=== PATIENT | female | born 1950 | race African-American/Black ===

== ENCOUNTER 2019-12-15 08:24 | Day surgery (SDC) | payer MEDICARE, MEDICAID ==
[2019-12-15] VITALS (15 sets, daily range): BP systolic 144–183; BP diastolic 61–138
[~2019-12-15] VITALS: Ht 162.6 cm; Wt 80.5 kg
[~2019-12-15 08:24] MED LIST: BENA5TAB39 PO; CYAN50003 PO; ESOM40CA PO; FOLI0.4T2 PO; HYDR12.522 PO; IRON-11 PO; LOP25T PO; NITR0.4T SL; NORCO10T PO; VIT1CAPS48 PO
[2019-12-15] MEDS ORDERED: normal saline 1000ml 1,000 ML IV PRN (08:45)
[2019-12-15] MEDS ORDERED: TIZA4TAB11 PO (09:00)
[2019-12-15] MEDS ORDERED: POTA10TA36 PO (09:00)
[2019-12-15] MEDS ORDERED: PANT-47 PO (09:00)
[2019-12-15 09:29] LABS: BASOPHILS % (AUTO) 0.5 % (0-1); EOSINOPHILS # (AUTO) 0.5 X10'3 (0-0.9); EOSINOPHILS % (AUTO) 6.4 % (0-6); HEMATOCRIT 34.7 % (35.0-45.0); HEMOGLOBIN 11.2 g/dl (12.0-16.0); LYMPHOCYTES # (AUTO) 2.1 X10'3 (1.1-4.8); LYMPHOCYTES % (AUTO) 26.6 % (21-51); MEAN CORPUSCULAR HEMOGLOBIN 25.2 PG (27.0-31.0); MEAN CORPUSCULAR HGB CONC 32.4 g/dL (33.0-36.5); MEAN CORPUSCULAR VOLUME 77.8 FL (78-98); MEAN PLATELET VOLUME 7.7 FL (7.4-10.4); MONOCYTES # (AUTO) 0.4 X10'3 (0-0.9); MONOCYTES % (AUTO) 5.1 % (2-12); NEUTROPHILS # (AUTO) 4.9 X10'3 (1.8-7.7); NEUTROPHILS % (AUTO) 61.4 % (42-75); PLATELET COUNT 313 X10'3 (140-440); RED BLOOD COUNT 4.47 X10'6 (4.20-5.60); RED CELL DISTRIBUTION WIDTH 17.2 % (11.5-14.5)
[2019-12-15] MEDS ORDERED: midazolam 2 mg/2 ml injection ONE (11:20)
[2019-12-15] MEDS ORDERED: fentaNYL/PF 50MCG/1 ML 2ML syringe ONE (11:20)
== END 2019-12-15 16:37 | disposition home or self-care (01) ==
LOC: SSTAY O 08:24
PROVIDERS: ATTEND Radiology Vascular & Interventional Radiology
DX: R91.1 Solitary pulmonary nodule (principal); G89.4 Chronic pain syndrome; E21.3 Hyperparathyroidism, unspecified; I10 Essential (primary) hypertension; M19.90 Unspecified osteoarthritis, unspecified site; K21.9 Gastro-esophageal reflux disease without esophagitis; Z96.643 Presence of artificial hip joint, bilateral; Z90.721 Acquired absence of ovaries, unilateral; Z98.890 Other specified postprocedural states; F17.210 Nicotine dependence, cigarettes, uncomplicated; Z88.6 Allergy status to analgesic agent; Z88.2 Allergy status to sulfonamides; Z88.8 Allergy status to other drugs, medicaments and biological substances
CPT/HCPCS: 32405; 36415; 71045; 77012; 85025; J2250; J3010; 99152; 99153

== ENCOUNTER 2020-05-17 05:20 | Inpatient (IN) | payer MEDICARE, MEDICAID ==
[2020-05-10 11:45] LABS: CLARITY,URINE CLEAR (Clear); COLOR,URINE YELLOW (Yellow); GLUCOSE, URINE NEGATIVE (Neg); KETONES,URINE NEGATIVE (Neg); LEUKOCYTE ESTERASE ,URINE NEGATIVE (Neg); NITRITES, URINE NEGATIVE (Neg); OCCULT BLOOD,URINE NEGATIVE (Neg); PROTEIN,URINE NEGATIVE (Neg)
[2020-05-10 11:55] LABS: UA COLLECTION TYPE CLN CATCH MIDSTREAM
[2020-05-10 11:55] LABS: BASOPHILS % (AUTO) 0.7 % (0-1); EOSINOPHILS # (AUTO) 0.4 X10'3 (0-0.9); EOSINOPHILS % (AUTO) 6.2 % (0-6); LYMPHOCYTES # (AUTO) 2.2 X10'3 (1.1-4.8); LYMPHOCYTES % (AUTO) 34.1 % (21-51); MEAN CORPUSCULAR HEMOGLOBIN 25.3 PG (27.0-31.0); MEAN CORPUSCULAR HGB CONC 31.9 g/dL (33.0-36.5); MEAN CORPUSCULAR VOLUME 79.3 FL (78-98); MEAN PLATELET VOLUME 7.8 FL (7.4-10.4); MONOCYTES # (AUTO) 0.4 X10'3 (0-0.9); MONOCYTES % (AUTO) 6.4 % (2-12); NEUTROPHILS # (AUTO) 3.4 X10'3 (1.8-7.7); NEUTROPHILS % (AUTO) 52.6 % (42-75); PRE OP HEMATOCRIT 36.3 % (35.0-45.0); PRE OP HEMOGLOBIN 11.6 g/dL (12.0-16.0); PRE OP PLATELET COUNT 341 X10'3 (140-440); RED BLOOD COUNT 4.58 X10'6 (4.20-5.60); RED CELL DISTRIBUTION WIDTH 16.4 % (11.5-14.5)
[2020-05-10 11:59] LABS: PRE OP PROTIME 10.8 SECONDS (9.0-12.0)
[2020-05-10 12:46] LABS: ALBUMIN 4.1 G/DL (3.4-5.0); ALBUMIN/GLOBULIN RATIO 0.9 (1.1-1.5); ALKALINE PHOSPHATASE 93 IU/L (46-116); BLOOD UREA NITROGEN 14 MG/DL (7-18); BUN/CREATININE RATIO 13.7 (6.6-38.0); CALCIUM 11.1 MG/DL (8.5-10.1); CHLORIDE 102 MMOL/L (99-107); CREATININE 1.02 MG/DL (0.40-0.90); PRE OP ALT 22 U/L (30-65); PRE OP ANION GAP 10 (8-16); PRE OP AST 19 U/L (10-37); PRE OP BILIRUB, TOTAL 0.3 MG/DL (0.0-1.0); PRE OP GLUCOSE 90 MG/DL (70-104); PRE OP POTASSIUM 3.4 MMOL/L (3.4-5.1); PRE OP SODIUM 140 MMOL/L (135-145); TOTAL CARBON DIOXIDE 27.8 MMOL/L (24-32); TOTAL PROTEIN 8.8 G/DL (6.4-8.2); eGFR 65 ML/MIN
[2020-05-11 08:51] LABS: ABG HCO3 22.4 mmol/L (22.0-26.0); ABG OXYGEN SATURATION 95.8 % (94-97); ABG PCO2 (T) 33.3 mmHg (32.0-45.0); ABG PO2 (T) 80.1 mmHg (75.0-100.0); ALLEN'S TEST POSITIVE; FCOHb 0.3 % (0.0-3.9); FMetHb 0.1 % (0.0-1.5); FO2Hb 95.4 % (94-97); TOTAL HEMOGLOBIN 11.9 G/dl (12.0-16.0)
[2020-05-17] VITALS (18 sets, daily range): BP systolic 138–166; BP diastolic 50–90
[~2020-05-17] VITALS: Ht 162.6 cm; Wt 75.0 kg
[~2020-05-17 05:20] MED LIST changes: -ESOM40CA PO; -IRON-11 PO; +KEN0.1O TP; -NITR0.4T SL; +PANT-47 PO; +POTA10TA36 PO; +TIZA4TAB11 PO; +ringers solution, lacted 1,000 ML IV SCH
[2020-05-17] MEDS ORDERED: ceFAZolin 2gm in dextrose, iso 50 ML IV ONE (05:30)
[2020-05-17] MEDS ORDERED: famotidine 20mg tablet PO ONE (05:30)
[2020-05-17] MEDS ORDERED: gabapentin 400mg capsule PO ONE (05:30)
[2020-05-17] MEDS ORDERED: albuterol 2.5 MG/3 ML nebule NEB ONE (05:30)
[2020-05-17] MEDS ORDERED: DOCUMENT DATE & TIME OF BETA-BLOCKER PO ONE (05:30)
[2020-05-17] MEDS ORDERED: LIDOcaine 1% (10mg/ml) 2ml vial ONE (06:26)
[2020-05-17] MEDS: mupirocin 2% nasal ointment 1gm UD NS SCH ×3 (06:31→20:39)
[2020-05-17] MEDS ORDERED: ePHEDrine 50MG/ML INJ. ONE (07:14)
[2020-05-17] MEDS ORDERED: sevoflurane 250ml liquid IH ONE (07:14)
[2020-05-17] MEDS ORDERED: MIDAZolam 5mg/5ml vial ONE (07:17)
[2020-05-17] MEDS ORDERED: fentaNYL /PF 50mcg/ml 5ml ampule ONE (07:17)
[2020-05-17] MEDS ORDERED: BUPIVAcaine/PF 2.5 mg/ml (0.25%) 30ml vial ONE (08:16)
[2020-05-17] MEDS ORDERED: propofol inj 20 ML IV ONE (08:19)
[2020-05-17] MEDS ORDERED: rocuronium 10mg/ml inj IV ONE (08:19)
[2020-05-17] MEDS ORDERED: ringers solution, lacted 1,000 ML IV SCH (09:08)
[2020-05-17] MEDS ORDERED: ondansetron/PF 4mg/2ml inj IV PRN ×2 (09:10→12:05)
[2020-05-17] MEDS ORDERED: labetalol 20mg/4ml (5mg/ml) syringe IV PRN (09:10)
[2020-05-17] MEDS ORDERED: meperidine/PF 25mg/ml syringe IV PRN ×3 (09:10)
[2020-05-17] MEDS ORDERED: HYDROmorphone inj. 0.5 MG/0.5 ML DISP.SYRIN IV PRN ×3 (09:10→12:10)
[2020-05-17] MEDS ORDERED: albumin (Human) 5% 250ml 250 ML IV ONE (11:28)
[2020-05-17] MEDS ORDERED: dexamethasone sod phosphate 4mg/ml inj. ONE (11:28)
[2020-05-17] MEDS ORDERED: acetaminophen 1,000mg/100ml IV 100 ML IV ONE (11:29)
[2020-05-17] MEDS ORDERED: ondansetron/PF 4mg/2ml inj ONE (11:31)
--- NOTE | 2020-05-17 11:57 | NUR ---
LT RADIAL ART LINE REMOVED WITH CATHETER INTACT. PRESSURE HELD AND DRESSING APPLIED. NO BLEEDING NOTED.
--- NOTE | 2020-05-17 11:57 | NUR ---
Received from OR via , accompanied by Anesthesiologist DR SUNSHINE and report given by Anesthesiolgist. AWAKENS TO VOICE. VITALS STABLE. DRESSING DI. JESSICA PAIN. CHEST TUBE TO LOW SUCTION. BEY WITH CLEAR URINE.
[2020-05-17] MEDS ORDERED: triamcinolone acet 0.1% cream 15gm TP PRN (12:00)
[2020-05-17] MEDS ORDERED: tizanidine 4mg tablet PO PRN (12:00)
[2020-05-17] MEDS ORDERED: naloxone 0.4 mg/ml inj IV PRN (12:05)
[2020-05-17] MEDS ORDERED: metoclopramide 5 mg/ml inj IV PRN (12:05)
[2020-05-17] MEDS ORDERED: magnesium hydroxide 30ml (MOM) UD suspension PO PRN (12:05)
[2020-05-17] MEDS ORDERED: HYDROcodone/acetaminophen 10/325mg tab PO PRN (12:05)
[2020-05-17] MEDS ORDERED: albuterol 2.5 MG/3 ML nebule NEB PRN (12:05)
[2020-05-17] MEDS ORDERED: ipratropium 0.5 MG/2.5ML nebule IH PRN (12:20)
--- NOTE | 2020-05-17 12:56 | NUR ---
Patient in room PAS IN 900. I have received report from Lj,biology internship and had the opportunity to ask questions and assume patient care.
--- NOTE | 2020-05-17 13:07 | NUR ---
Report called to receiving nurse. Transferred via BED Belongings . Special Issues communicated to receiving nurse. AWAKE AND ORIENTED. VITALS STABLE. DRESSING DI. STATES PAIN IMPROVING. TO SANDEEP RM 316 AT THIS TIME.
--- NOTE | 2020-05-17 13:15 | NUR ---
received pt into room 316,pt groggy,but responsive,denies pain at this time,oriented to surroundings,VSS,dressing right upper lateral chest D and I,no air leak to chest tube,120 cc sero-sang drainage,will cont with post -op monitering
[2020-05-17] MEDS: ketorolac tromethamine 15mg/ml inj. IV SCH ×2 (14:14→20:39)
[2020-05-17] MEDS: albuterol 2.5 MG/3 ML nebule NEB SCH ×3 (15:00→23:36)
[2020-05-17 15:16] LABS: BASOPHILS % (AUTO) 0.2 % (0-1); EOSINOPHILS % (AUTO) 0.1 % (0-6); HEMATOCRIT 30.4 % (35.0-45.0); HEMOGLOBIN 9.7 g/dl (12.0-16.0); LYMPHOCYTES # (AUTO) 0.8 X10'3 (1.1-4.8); LYMPHOCYTES % (AUTO) 6.9 % (21-51); MEAN CORPUSCULAR HEMOGLOBIN 25.1 PG (27.0-31.0); MEAN CORPUSCULAR HGB CONC 31.9 g/dL (33.0-36.5); MEAN CORPUSCULAR VOLUME 78.7 FL (78-98); MEAN PLATELET VOLUME 7.5 FL (7.4-10.4); MONOCYTES # (AUTO) 0.5 X10'3 (0-0.9); MONOCYTES % (AUTO) 4.2 % (2-12); NEUTROPHILS # (AUTO) 9.8 X10'3 (1.8-7.7); NEUTROPHILS % (AUTO) 88.6 % (42-75); PLATELET COUNT 262 X10'3 (140-440); RED BLOOD COUNT 3.86 X10'6 (4.20-5.60); RED CELL DISTRIBUTION WIDTH 16.1 % (11.5-14.5)
[2020-05-17 15:26] LABS: ALBUMIN 3.7 G/DL (3.4-5.0); ANION GAP 13 (8-16); BLOOD UREA NITROGEN 11 MG/DL (7-18); BUN/CREATININE RATIO 13.9 (6.6-38.0); CALCIUM 9.6 MG/DL (8.5-10.1); CHLORIDE 101 MMOL/L (99-107); CREATININE 0.79 MG/DL (0.40-0.90); GLUCOSE 135 MG/DL (70-104); MAGNESIUM 1.3 MG/DL (1.5-2.4); SODIUM 137 MMOL/L (135-145); TOTAL CARBON DIOXIDE 22.9 MMOL/L (24-32); eGFR 87 ML/MIN
[2020-05-17 15:27] LABS: POTASSIUM 2.9 MMOL/L (3.5-5.1)
--- NOTE | 2020-05-17 15:30 | NUR ---
RECEIVED CRITICAL LAB VALUE K=2.9 emily MALIK contacted,orders taken for k and mg replacement
[2020-05-17] MEDS ORDERED: magnesium Cl slow-release 64mg tablet PO PRN (15:45)
[2020-05-17] MEDS ORDERED: potassium Cl 20 mEq SR tablet PO PRN ×2 (15:45)
[2020-05-17] MEDS: K and/or MAG REPLACEMENT MC SCH ×2 (15:45→23:00)
[2020-05-17] MEDS: ceFAZolin inj. 1,000 MG in dextrose 5%-water 50ml 50 ML IV SCH (16:32)
[2020-05-17] MEDS: potassium CL 10mEq/100ml bag 100 ML IV PRN ×5 (16:45→23:28)
--- NOTE | 2020-05-17 18:00 | NUR ---
Problems reprioritized. Patient report given, questions answered & plan of care reviewed with WANDA lee.
--- NOTE | 2020-05-17 18:10 | NUR ---
Patient in room MED 316. I have received report from Millie, and had the opportunity to ask questions and assume patient care.
[2020-05-17] MEDS: gabapentin 300mg capsule PO SCH (20:00)
[2020-05-17] MEDS: metoprolol tartrate 50mg tablet PO SCH (20:40)
[2020-05-17] MEDS: docusate sod 100mg capsule PO SCH (20:40)
[2020-05-17] MEDS: HYDROmorphone 1 mg/ml syringe IV PRN (22:34)
[2020-05-18] MEDS: potassium CL 10mEq/100ml bag 100 ML IV PRN ×3 (00:31→03:04)
[2020-05-18] MEDS: ceFAZolin inj. 1,000 MG in dextrose 5%-water 50ml 50 ML IV SCH (00:31)
[2020-05-18 01:07] LABS: BASOPHILS % (AUTO) 0.2 % (0-1); EOSINOPHILS % (AUTO) 0.2 % (0-6); HEMATOCRIT 27.3 % (35.0-45.0); LYMPHOCYTES # (AUTO) 1.4 X10'3 (1.1-4.8); LYMPHOCYTES % (AUTO) 12.8 % (21-51); MEAN CORPUSCULAR VOLUME 78.7 FL (78-98); MEAN PLATELET VOLUME 7.4 FL (7.4-10.4); MONOCYTES # (AUTO) 0.7 X10'3 (0-0.9); MONOCYTES % (AUTO) 6.7 % (2-12); NEUTROPHILS # (AUTO) 8.7 X10'3 (1.8-7.7); NEUTROPHILS % (AUTO) 80.1 % (42-75); PLATELET COUNT 246 X10'3 (140-440); RED BLOOD COUNT 3.47 X10'6 (4.20-5.60); RED CELL DISTRIBUTION WIDTH 15.9 % (11.5-14.5); WHITE BLOOD COUNT 10.8 X10'3 (4.5-11.0)
[2020-05-18 01:14] LABS: ALBUMIN 3.1 G/DL (3.4-5.0); ANION GAP 10 (8-16); BLOOD UREA NITROGEN 14 MG/DL (7-18); BUN/CREATININE RATIO 13.6 (6.6-38.0); CALCIUM 8.9 MG/DL (8.5-10.1); CHLORIDE 100 MMOL/L (99-107); CREATININE 1.03 MG/DL (0.40-0.90); GLUCOSE 106 MG/DL (70-104); MAGNESIUM 1.2 MG/DL (1.5-2.4); POTASSIUM 4.4 MMOL/L (3.5-5.1); SODIUM 134 MMOL/L (135-145); TOTAL CARBON DIOXIDE 24.5 MMOL/L (24-32); eGFR 64 ML/MIN
[2020-05-18] MEDS: magnesium 4gm in 100ml NS 100 ML IV PRN ×2 (01:28→09:25)
[2020-05-18] MEDS: ketorolac tromethamine 15mg/ml inj. IV SCH ×2 (01:30→08:29)
--- NOTE | 2020-05-18 01:31 | NUR ---
patient's am labs drawn, Mag level is 1.2. Starting him on IV Mag replacement per protocol. Patient is asymptomatic. Not at any distress. Normal Sinus Rhythm.
[2020-05-18 02:00] VITALS: BP 129/56
[2020-05-18] MEDS: HYDROmorphone 1 mg/ml syringe IV PRN ×4 (03:12→19:47)
[2020-05-18] MEDS: albuterol 2.5 MG/3 ML nebule NEB SCH ×6 (03:56→23:28)
[2020-05-18 06:30] VITALS: BP 123/47
[2020-05-18] MEDS ORDERED: non-formulary drug (Vit A & D3 In Cod Liver Oil (Cod Liver Oil Softgel) 1 EACH) PO SCH (08:00)
[2020-05-18] MEDS: K and/or MAG REPLACEMENT MC SCH ×2 (08:09→20:00)
[2020-05-18] MEDS: cyanocobalamin 500mcg tablet PO SCH (08:24)
[2020-05-18] MEDS: metoprolol tartrate 50mg tablet PO SCH ×2 (08:25→19:45)
[2020-05-18] MEDS: folic acid 1mg tablet PO SCH (08:25)
[2020-05-18] MEDS: lisinopril 5mg tablet PO SCH (08:26)
[2020-05-18] MEDS: pantoprazole 40mg Tablet.DR PO SCH (08:26)
[2020-05-18] MEDS: HYDROchlorothiazide 25mg tablet PO SCH (08:26)
[2020-05-18] MEDS: docusate sod 100mg capsule PO SCH ×2 (08:27→19:45)
[2020-05-18] MEDS: mupirocin 2% nasal ointment 1gm UD NS SCH ×2 (08:29→19:45)
[2020-05-18 11:00] VITALS: BP 128/47
[2020-05-18 15:00] VITALS: BP 97/50
[2020-05-18 18:00] VITALS: BP 133/52
[2020-05-18] MEDS: gabapentin 300mg capsule PO SCH (19:43)
[2020-05-18 22:00] VITALS: BP 128/55
[2020-05-19 02:00] VITALS: BP 128/51
[2020-05-19] MEDS: albuterol 2.5 MG/3 ML nebule NEB SCH ×6 (03:23→22:08)
[2020-05-19 03:44] LABS: BASOPHILS % (AUTO) 0.3 % (0-1); EOSINOPHILS # (AUTO) 0.2 X10'3 (0-0.9); EOSINOPHILS % (AUTO) 2.2 % (0-6); HEMATOCRIT 30.5 % (35.0-45.0); HEMOGLOBIN 9.9 g/dl (12.0-16.0); LYMPHOCYTES # (AUTO) 1.3 X10'3 (1.1-4.8); LYMPHOCYTES % (AUTO) 12.8 % (21-51); MEAN CORPUSCULAR HEMOGLOBIN 25.3 PG (27.0-31.0); MEAN CORPUSCULAR HGB CONC 32.4 g/dL (33.0-36.5); MEAN PLATELET VOLUME 7.5 FL (7.4-10.4); MONOCYTES # (AUTO) 0.6 X10'3 (0-0.9); MONOCYTES % (AUTO) 5.8 % (2-12); NEUTROPHILS # (AUTO) 8.1 X10'3 (1.8-7.7); NEUTROPHILS % (AUTO) 78.9 % (42-75); PLATELET COUNT 279 X10'3 (140-440); RED BLOOD COUNT 3.91 X10'6 (4.20-5.60); RED CELL DISTRIBUTION WIDTH 16.2 % (11.5-14.5); WHITE BLOOD COUNT 10.2 X10'3 (4.5-11.0)
[2020-05-19 03:52] LABS: ALBUMIN 3.2 G/DL (3.4-5.0); ANION GAP 8 (8-16); BLOOD UREA NITROGEN 9 MG/DL (7-18); BUN/CREATININE RATIO 10.7 (6.6-38.0); CALCIUM 9.8 MG/DL (8.5-10.1); CHLORIDE 99 MMOL/L (99-107); CREATININE 0.84 MG/DL (0.40-0.90); GLUCOSE 92 MG/DL (70-104); MAGNESIUM 2.3 MG/DL (1.5-2.4); POTASSIUM 4.3 MMOL/L (3.5-5.1); SODIUM 132 MMOL/L (135-145); TOTAL CARBON DIOXIDE 25.1 MMOL/L (24-32); eGFR 81 ML/MIN
--- NOTE | 2020-05-19 05:42 | NUR ---
Patient is feeling better. Able to go to the bathroom with minimal assist. O2 sat in upper 90's in room temperature.
[2020-05-19 06:00] VITALS: BP 143/73
--- NOTE | 2020-05-19 06:30 | NUR ---
Patient in room MED 316. I have received report from Luly MUÑOZ and had the opportunity to ask questions and assume patient care.
--- NOTE | 2020-05-19 06:41 | NUR ---
Problems reprioritized. Patient report given to Carissa, questions answered & plan of care reviewed with .
[2020-05-19] MEDS: K and/or MAG REPLACEMENT MC SCH ×2 (08:05→19:49)
[2020-05-19] MEDS: pantoprazole 40mg Tablet.DR PO SCH (08:13)
[2020-05-19] MEDS: cyanocobalamin 500mcg tablet PO SCH (08:13)
[2020-05-19] MEDS: metoprolol tartrate 50mg tablet PO SCH ×2 (08:13→19:55)
[2020-05-19] MEDS: folic acid 1mg tablet PO SCH (08:13)
[2020-05-19] MEDS: guaiFENesin ER 600mg tablet PO SCH ×2 (08:13→19:55)
[2020-05-19] MEDS: docusate sod 100mg capsule PO SCH ×2 (08:14→19:55)
[2020-05-19] MEDS: HYDROchlorothiazide 25mg tablet PO SCH (08:14)
[2020-05-19] MEDS: lisinopril 5mg tablet PO SCH (08:14)
[2020-05-19] MEDS: HYDROcodone/acetaminophen 10/325mg tab PO PRN ×3 (08:15→19:11)
[2020-05-19] MEDS: mupirocin 2% nasal ointment 1gm UD NS SCH (08:15)
[2020-05-19 10:00] VITALS: BP 114/56
[2020-05-19 14:00] VITALS: BP 139/60
--- NOTE | 2020-05-19 14:45 | NUR ---
López Catheter discontinued per order. Pt tolerated well.
--- NOTE | 2020-05-19 18:00 | NUR ---
Problems reprioritized. Patient report given, questions answered & plan of care reviewed with Camille RN.
--- NOTE | 2020-05-19 18:37 | NUR ---
Patient in room MED 316. I have received report from Radha MUÑOZ and had the opportunity to ask questions and assume patient care.
[2020-05-20 02:00] VITALS: BP 143/62
[2020-05-20] MEDS: HYDROcodone/acetaminophen 10/325mg tab PO PRN ×2 (02:22→09:45)
[2020-05-20] MEDS: albuterol 2.5 MG/3 ML nebule NEB SCH ×3 (03:44→12:25)
[2020-05-20 06:04] LABS: BASOPHILS % (AUTO) 0.4 % (0-1); EOSINOPHILS # (AUTO) 0.3 X10'3 (0-0.9); EOSINOPHILS % (AUTO) 3.1 % (0-6); HEMATOCRIT 28.3 % (35.0-45.0); HEMOGLOBIN 9.4 g/dl (12.0-16.0); LYMPHOCYTES # (AUTO) 1.4 X10'3 (1.1-4.8); LYMPHOCYTES % (AUTO) 12.9 % (21-51); MEAN CORPUSCULAR HEMOGLOBIN 25.7 PG (27.0-31.0); MEAN CORPUSCULAR HGB CONC 33.3 g/dL (33.0-36.5); MEAN CORPUSCULAR VOLUME 77.4 FL (78-98); MEAN PLATELET VOLUME 7.7 FL (7.4-10.4); MONOCYTES # (AUTO) 0.8 X10'3 (0-0.9); MONOCYTES % (AUTO) 7.1 % (2-12); NEUTROPHILS # (AUTO) 8.2 X10'3 (1.8-7.7); NEUTROPHILS % (AUTO) 76.5 % (42-75); PLATELET COUNT 258 X10'3 (140-440); RED BLOOD COUNT 3.65 X10'6 (4.20-5.60); RED CELL DISTRIBUTION WIDTH 15.8 % (11.5-14.5); WHITE BLOOD COUNT 10.7 X10'3 (4.5-11.0)
[2020-05-20 06:15] LABS: ALBUMIN 2.9 G/DL (3.4-5.0); ANION GAP 10 (8-16); BLOOD UREA NITROGEN 13 MG/DL (7-18); BUN/CREATININE RATIO 17.1 (6.6-38.0); CHLORIDE 95 MMOL/L (99-107); CREATININE 0.76 MG/DL (0.40-0.90); GLUCOSE 101 MG/DL (70-104); MAGNESIUM 1.8 MG/DL (1.5-2.4); POTASSIUM 3.9 MMOL/L (3.5-5.1); SODIUM 129 MMOL/L (135-145); TOTAL CARBON DIOXIDE 24.3 MMOL/L (24-32); eGFR > 90 ML/MIN
[2020-05-20 06:30] VITALS: BP 126/64
--- NOTE | 2020-05-20 06:36 | NUR ---
Problems reprioritized. Patient report given, questions answered & plan of care reviewed with Pat RN.
[2020-05-20] MEDS ORDERED: HYDR-4353 PO (09:14)
[2020-05-20] MEDS ORDERED: DOCU100C40 PO (09:14)
[2020-05-20] MEDS ORDERED: IPRA3AMP31 IH (09:14)
[2020-05-20] MEDS ORDERED: GUAI600T45 PO (09:14)
[2020-05-20] MEDS: metoprolol tartrate 50mg tablet PO SCH (09:32)
[2020-05-20] MEDS: guaiFENesin ER 600mg tablet PO SCH (09:33)
[2020-05-20] MEDS: pantoprazole 40mg Tablet.DR PO SCH (09:33)
[2020-05-20] MEDS: HYDROchlorothiazide 25mg tablet PO SCH (09:33)
[2020-05-20] MEDS: docusate sod 100mg capsule PO SCH (09:34)
[2020-05-20] MEDS: folic acid 1mg tablet PO SCH (09:34)
[2020-05-20 09:35] VITALS: BP_SYST 107
[2020-05-20] MEDS: lisinopril 5mg tablet PO SCH (09:35)
[2020-05-20] MEDS: cyanocobalamin 500mcg tablet PO SCH (09:35)
--- NOTE | 2020-05-20 09:38 | NUR ---
CASE MANAGEMENT PAGED: 316: TRELL - NEEDS HOME NEBULIZER MACHINE. IS HH AVAILABLE IN HER AREA? TY
--- NOTE | 2020-05-21 10:22 | NUR ---
Case management DC follow up JUAQUIN Lobectomy: LM/VM re post DC status, questions,concerns
== END 2020-05-20 13:30 | disposition home health service (06) | DRG 165 ==
LOC: PAS IN 05:20 → UNDOADMIN 05:20 → EDSTATUS 07:30 → PAS IN 12:02 → MED 3N 13:20 → PAS IN 13:20
PROVIDERS: ADMIT Thoracic Surgery (Cardiothoracic Vascular Surgery); ATTEND Thoracic Surgery (Cardiothoracic Vascular Surgery)
PROC: 07B74ZX Excision of Thorax Lymphatic, Percutaneous Endoscopic Approach, Diagnostic (ICD-10-PCS; 2020-05-17)
PROC: 0BTC4ZZ Resection of Right Upper Lung Lobe, Percutaneous Endoscopic Approach (ICD-10-PCS; principal; 2020-05-17 07:14)
DX: C34.11 Malignant neoplasm of upper lobe, right bronchus or lung (principal); D37.05 Neoplasm of uncertain behavior of pharynx; J44.9 Chronic obstructive pulmonary disease, unspecified; I10 Essential (primary) hypertension; G89.4 Chronic pain syndrome; Z96.643 Presence of artificial hip joint, bilateral; F32.9 Major depressive disorder, single episode, unspecified; K21.9 Gastro-esophageal reflux disease without esophagitis; M19.90 Unspecified osteoarthritis, unspecified site; D64.9 Anemia, unspecified; Z87.891 Personal history of nicotine dependence; Z83.3 Family history of diabetes mellitus; Z85.118 Personal history of other malignant neoplasm of bronchus and lung; Z92.3 Personal history of irradiation; Z98.1 Arthrodesis status; Z20.828 Contact with and (suspected) exposure to other viral communicable diseases
CPT/HCPCS: 36415; 36600; 71045; 71046; 80048; 80053; 81003; 82803; 82948; 83036; 83735; 85018; 85025; 85610; 85730; 86885; 86900; 86901; 87081; 87635; 88305; 88309; 88312; 88341; 88342; 93005; 94640; 94667; 94668; 94760; 97116; 97162; 97530; A4215; A4618; A6449; A7000; A7048; C1758; G0378; J0131; J0690; J1100; J1170; J1885; J2001; J2175; J2250; J2405; J2704; J3010; J3475; J3480; J3490; J7060; J7120; P9045